=== PATIENT | female | born 1955 | race Caucasian/White ===

== ENCOUNTER 2018-02-21 07:48 | Day surgery (SDC) | payer OTHER ==
[~2018-02-21 07:48] MED LIST: PROPOFOL 500 MG/50 ML EMU IV ONE
[2018-02-21] MEDS ORDERED: PROPOFOL 500 MG/50 ML EMU IV ONE (09:40)
[2018-02-21 09:48] VITALS: TEMP 97.4
[2018-02-21 09:59] VITALS: PULSE 65; O2SAT 99
[2018-02-21 10:16] VITALS: BP 107/73; RESP 20
== END 2018-02-21 10:28 | disposition home or self-care (01) | DRG 951 ==
LOC: SURG 07:48
PROVIDERS: ATTEND Internal Medicine Gastroenterology
DX: Z12.11 Encounter for screening for malignant neoplasm of colon (principal); Z80.0 Family history of malignant neoplasm of digestive organs; K64.9 Unspecified hemorrhoids
CPT/HCPCS: J2704

== ENCOUNTER 2018-02-22 12:14 | Day surgery (SDC) | payer OTHER ==
[2018-02-22 14:01] VITALS: BP 119/78; PULSE 72; RESP 18; TEMP 97.4; O2SAT 99
== END 2018-02-22 14:15 | disposition home or self-care (01) | DRG 951 ==
LOC: SURG 12:14
PROVIDERS: ATTEND Surgery
DX: Z12.11 Encounter for screening for malignant neoplasm of colon (principal); Z80.0 Family history of malignant neoplasm of digestive organs
CPT/HCPCS: J2704